=== PATIENT | male | born 1970 | race Caucasian/White ===

== ENCOUNTER 2019-04-05 06:17 | Inpatient (IN) | payer OTHER ==
[~2019-04-05] VITALS: Ht 188 cm; Wt 102.0 kg
[2019-04-05] MEDS ORDERED: OMNIPAQUE 350 MG/ML, 100ML BOTTLE ONE (06:48)
--- NOTE | 2019-04-05 06:59 | NUR ---
Madeleine rendon in [facility] [place] - 04/05/19 at 0711 by NICKI REPORT RECEIVED FROM
[2019-04-05 07:04] LABS: BASOPHILS # (AUTO) 0.01 x10^3/uL (0-0.1); BASOPHILS % (AUTO) 0 % (0-1); EOSINOPHILS # (AUTO) 0.01 x10^3/uL (0-0.4); EOSINOPHILS % (AUTO) 0 % (1-7); LYMPHOCYTES # (AUTO) 0.69 x10^3/uL (1-3.4); LYMPHOCYTES % (AUTO) 11 % (22-44); MD NO; MEAN CORPUSCULAR HEMOGLOBIN 30.1 pg (27.5-34.5); MEAN CORPUSCULAR HGB CONC 33.8 g/dL (33.2-36.2); MEAN CORPUSCULAR VOLUME 88.9 fL (81-97); MEAN PLATELET VOLUME 7.9 fL (7.4-10.4); MONOCYTES # (AUTO) 0.32 x10^3/uL (0.2-0.8); MONOCYTES % (AUTO) 5 % (2-9); NEUTROPHILS % (AUTO) 84 % (42-75); PLATELET COUNT 235 x10^3/uL (130-400); RED CELL DISTRIBUTION WIDTH 13.5 % (9.4-14.8)
[2019-04-05 07:05] LABS: INTERNATIONAL NORMALIZED RATIO 1.02 (0.93-1.1); PROTHROMBIN TIME 10.7 Seconds (9.6-11.5)
--- NOTE | 2019-04-05 07:11 | NUR ---
report received from radha millard. pt moved to 19.
--- NOTE | 2019-04-05 08:12 | NUR ---
PT RESTING IN [facility]. RESPS EVEN AND UNLABORED. ALL MONITORS IN PLACE. CALL LIGHT WITHIN REACH.
--- NOTE | 2019-04-05 08:47 | NUR ---
urinal at bedside per pt's request at this time.
[2019-04-05] MEDS ORDERED: ASPIRIN 325 MG TABLET PO ONE (09:00)
[2019-04-05] MEDS ORDERED: ASPIRIN 325 MG TABLET ONE (09:12)
[2019-04-05] MEDS: PLEASE ENTER ALLERGIES MC SCH ×2 (09:19→10:54)
--- NOTE | 2019-04-05 09:19 | NUR ---
pt medicated per emar. pt tolerated well.
--- NOTE | 2019-04-05 10:28 | NUR ---
hospitalist at bedside to evaluate at this time.
[2019-04-05] MEDS: ASPIRIN 81 MG TABLET CHEW PO/NG SCH (10:57)
[2019-04-05] MEDS ORDERED: ACETAMINOPHEN 650 MG/20.3 ML UDC PO PRN (11:00)
[2019-04-05] MEDS ORDERED: INDOMETHACIN 25 MG CAPSULE PO PRN (11:00)
[2019-04-05] MEDS ORDERED: LABETALOL 5MG/ML, 20ML IV PRN (11:00)
[2019-04-05] MEDS ORDERED: TEMAZEPAM 15 MG CAPSULE PO PRN (11:00)
[2019-04-05] MEDS ORDERED: ONDANSETRON 4 MG TABLET PO PRN (11:00)
--- NOTE | 2019-04-05 11:44 | NUR ---
PT SLEEPING IN [facility]. RESPS EVEN AND UNLABORED. ALL MONITORS IN PLACE. CALL LIGHT WITHIN REACH.
[2019-04-05 11:59] LABS: BASOPHILS # (AUTO) 0.03 x10^3/uL (0-0.1); BASOPHILS % (AUTO) 0 % (0-1); EOSINOPHILS % (AUTO) 0 % (1-7); LYMPHOCYTES # (AUTO) 1.12 x10^3/uL (1-3.4); LYMPHOCYTES % (AUTO) 12 % (22-44); MD NO; MEAN CORPUSCULAR HGB CONC 33.6 g/dL (33.2-36.2); MEAN CORPUSCULAR VOLUME 89.3 fL (81-97); MEAN PLATELET VOLUME 7.9 fL (7.4-10.4); MONOCYTES % (AUTO) 4 % (2-9); NEUTROPHILS # (AUTO) 8.14 x10^3/uL (1.8-6.8); NEUTROPHILS % (AUTO) 84 % (42-75); PLATELET COUNT 269 x10^3/uL (130-400); RED BLOOD COUNT 5.22 x10^6/uL (4.38-5.82)
--- NOTE | 2019-04-05 12:46 | NUR ---
BREAK RN: PT UPRIGHT ON GURNEY WITH EYES CLOSED, RESPONDS APPROP TO STAFF, NAD, NO NEEDS AT THIS TIME, CALL LIGHT WITHIN REACH.
--- NOTE | 2019-04-05 13:45 | NUR ---
REPORT GIVEN TO BRANDON PAGE. ALL QUESTIONS ANSWERED.
[2019-04-05 14:52] VITALS: BP 141/86
[2019-04-05 18:59] LABS: MICROSCOPIC NOT IND
[2019-04-05 19:02] LABS: CULTURE INDICATED? NO
[2019-04-05 19:10] LABS: AMPHETAMINE SCREEN, URINE Negative (Negative); BARBITURATE SCREEN, URINE Negative (Negative); BENZODIAZEPINE SCREEN, URINE Negative (Negative); CANNABINOID SCREEN, URINE Negative (Negative); COCAINE SCREEN, URINE Negative (Negative); METHADONE SCREEN, URINE Negative (Negative); OPIATE SCREEN, URINE Negative (Negative)
[2019-04-05 20:05] VITALS: BP 118/74
[2019-04-05 20:07] VITALS: BP 121/75
[2019-04-05 20:10] VITALS: BP 116/75
[2019-04-05] MEDS: ATORVASTATIN 40 MG TABLET PO SCH (20:44)
[2019-04-05 22:00] VITALS: BP 101/63
[2019-04-06 02:53] VITALS: BP 116/73
[2019-04-06 04:00] VITALS: BP 108/70
[2019-04-06 06:00] VITALS: BP 123/79
[2019-04-06 06:19] LABS: LDL/HDL RATIO 0.9 (0.5-3.0)
[2019-04-06 06:39] LABS: CHOL/HDL RATIO 2.5
[2019-04-06 07:56] VITALS: BP 117/76
[2019-04-06] MEDS: ASPIRIN 81 MG TABLET CHEW PO/NG SCH (08:20)
[2019-04-06] MEDS ORDERED: TRAZODONE 50MG TABLET PO PRN (09:00)
[2019-04-06 13:10] VITALS: BP 117/82
[2019-04-06 20:47] VITALS: BP 101/65
[2019-04-06] MEDS: ATORVASTATIN 40 MG TABLET PO SCH (20:48)
[2019-04-07 02:30] VITALS: BP 111/84
[2019-04-07] MEDS ORDERED: ENOXAPARIN 40 MG/0.4 ML SQ SCH (08:00)
[2019-04-07] MEDS ORDERED: ASPIRIN 81 MG TABLET CHEW PO SCH (09:00)
[2019-04-07 09:20] VITALS: BP 124/93
[2019-04-07] MEDS ORDERED: ASPI-515 PO (10:55)
[2019-04-07] MEDS ORDERED: ATOR40TA78 PO (10:55)
== END 2019-04-07 13:48 | disposition home or self-care (01) | DRG 69 ==
LOC: EDSEX 06:17 → MERGE 06:17 → EDBD 06:17 → ED 07:36 → EDIP 08:59 → 4WST 13:59
PROVIDERS: ADMIT Internal Medicine; ATTEND Internal Medicine
DX: G45.9 Transient cerebral ischemic attack, unspecified (principal); G93.41 Metabolic encephalopathy; M10.9 Gout, unspecified; R47.1 Dysarthria and anarthria; Z80.0 Family history of malignant neoplasm of digestive organs; Z87.891 Personal history of nicotine dependence
CPT/HCPCS: 0399T; 36415; 70450; 70496; 70498; 70551; 71045; 80047; 80061; 80307; 81003; 83735; 84100; 85025; 85610; 85730; 93005; 93306; 99291; G0378; J1650; Q9967